=== PATIENT | male | born 1940 | race Caucasian/White ===

== ENCOUNTER → 2018-01-18 | Outpatient (CLI) | payer MEDICARE ==
[2018-01-18 14:03] LABS: CREATININE, SERUM 1.17 mg/dL (0.72-1.25)
--- NOTE | 2018-01-18 15:52 | Diagnostic Imaging Report ---
PROCEDURE: A single AP view of the chest. COMPARISON: None. INDICATIONS: PICC LINE PLACEMENT FINDINGS: See Impression IMPRESSION: 1. right-sided PICC line with distal tip projecting in the proximal SVC. 2. Clear lungs. No consolidation or pulmonary edema. 3. Cardiac mediastinal silhouette is unremarkable. Pulmonary vasculature is normal. Monico Ly M.D. Dictated by: Monico Ly M.D. on 01/18/2018 at 15:56 Electronically approved by: Monico Ly M.D. on 01/18/2018 at 15:56
== END ==
LOC: DX 13:04
PROVIDERS: ATTEND Internal Medicine Infectious Disease
DX: M86.071 Acute hematogenous osteomyelitis, right ankle and foot (principal)
CPT/HCPCS: 36415; 36569; 71045; 82565; 84520

== ENCOUNTER → 2020-04-24 | Day surgery (SDC) | payer MEDICARE, OTHER ==
[2020-04-19 13:01] LABS: BASOPHILS % 0.6 % (0.0-1.0); EOSINOPHILS # (AUTO) 0.3 (0.0-0.4); EOSINOPHILS % 4.2 % (0.0-6.0); HEMATOCRIT 34.9 % (38.2-49.6); HEMOGLOBIN 11.4 g/dL (14.0-18.0); LYMPHOCYTES % 13.8 % (18.0-39.1); MEAN CORPUSCULAR HEMOGLOBIN 29.9 pg (28-32); MEAN CORPUSCULAR HGB CONC 32.7 g/dL (31-35); MEAN CORPUSCULAR VOLUME 91.6 fL (81-99); MONOCYTES # (AUTO) 0.8 (0.2-0.8); MONOCYTES % 10.9 % (4.4-11.3); NEUTROPHILS # (AUTO) 4.8 (2.1-6.9); NEUTROPHILS % 70.4 % (38.7-80.0); PLATELET COUNT 157 x10e3/uL (140-360); RED BLOOD COUNT 3.81 x10e6/uL (4.3-5.7); RED CELL DISTRIBUTION WIDTH 14.6 % (11.7-14.4)
[2020-04-19 13:36] LABS: ANION GAP 13.7 mmol/L (8-16); CALCIUM 9.8 mg/dL (8.4-10.2); CREATININE, SERUM 1.33 mg/dL (0.72-1.25); POTASSIUM 4.7 mmol/L (3.5-5.1)
--- NOTE | 2020-04-19 13:55 | Diagnostic Imaging Report ---
EXAMINATION: CHEST 2 VIEWS INDICATION: Pre-operative COMPARISON: None FINDINGS: LINES/TUBES:None LUNGS:The lungs are well-inflated. No focal consolidation or pulmonary edema. PLEURA:No pleural effusion or pneumothorax. MEDIASTINUM:The cardiomediastinal silhouette appears normal in size and shape. BONES/SOFT TISSUES:No acute osseous injury. ABDOMEN:No free air under the diaphragm. IMPRESSION: No focal pneumonia or pulmonary edema. Signed by: Nadia Monreal MD on 04/19/2020 1:52 PM
[~2020-04-24] MED LIST: BUPIVACAINE HCL 0.5% INJ 30 ML VIAL INJ ONE; CEFAZOLIN SOD 1 GM/NS 50ML 50 ML IV ONE; DEXAMETHASONE SOD PHOS INJ 4 MG/ML VIAL ONE; FENTANYL CITRATE/PF 100MCG/2 ML INJ ONE; FLOMAX0.4 MG PO; LEVOTHYROXINE50 MCG PO; LIDOCAINE HCL 2% LOCAL INJ 5 ML SDV VIAL INJ ONE; LISINOPRIL10 MG PO; METFORMIN HCL500 MG PO; METOPROLOL PO; MIDAZOLAM HCL 2 MG/2 ML VIAL ONE; MULTIVITAMINS1 EAC7 PO; NAMENDA5 MG PO; OXYBUTYNIN CHLOR5 M1 PO; PRADAXA150 MG PO; PRADAXA75 MG PO; PROPOFOL IV EMULSION 10 MG/ML 20 ML VIAL ONE
[2020-04-24 06:03] LABS: INR 0.86; PROTHROMBIN TIME 12.2 seconds (11.9-14.5)
[2020-04-24 06:04] LABS: PARTIAL THROMBOPLASTIN TIME 29.7 seconds (23.8-35.5)
[2020-04-24 07:55] VITALS: BP 170/84
--- NOTE | 2020-04-24 08:18 | Operative Report ---
DATE OF PROCEDURE: 04/24/2020 SURGEON: Halie Lacy DPM PREOPERATIVE DIAGNOSES: 1. Right foot sesamoiditis. 2. Acute osteomyelitis, right foot, tibial sesamoid. PROCEDURE: Sesamoidectomy, right foot. ANESTHESIA: MAC with local block consisting of 10 mL of 0.5% Marcaine plain. HEMOSTASIS: Pneumatic ankle tourniquet set at 250 mmHg for a total time of approximately 20 minutes. MATERIALS: 3-0 Vicryl, 4-0 Prolene. ESTIMATED BLOOD LOSS: Less than 10 mL. PATHOLOGY: None. PROCEDURE NOTE: The patient was seen in the preoperative waiting room. The correct procedure and site were identified. The patient was brought to the operating room and placed on the operating table in a supine position. IV sedation was initiated at this time. An injection consisting of 10 mL of 0.5% Marcaine plain was injected into the right first metatarsal in a Burton block fashion. Next, the right foot was then scrubbed, prepped, and draped in the usual aseptic manner. The right foot, ankle, and leg were exsanguinated with an Esmarch bandage and a pneumatic ankle tourniquet was inflated to 250 mmHg for a total time of approximately 20 minutes. Attention was directed to the medial aspect of the patient's right first metatarsophalangeal joint, where a callus was noted plantarly with a previously healed wound. A 4 cm linear incision made directly along the medial aspect of the patient's right first metatarsophalangeal joint. Incision was carried through subcutaneous tissue them from deep or underling structures. All vital and neurovascular structures were identified, retracted medially and laterally and all bleeders were cauterized or ligated as deemed necessary. Next, a linear capsulotomy was performed along the medial aspect of the first metatarsophalangeal joint. The dissection was carried down to allow for good visualization of the tibial sesamoid. Utilizing a #15 blade, the tibial sesamoid was dissected free of all capsular ligamentous attachments. Care was taken to ensure that the flexor hallucis longus tendon was intact and functioning appropriately after removal of the sesamoid. Utilizing intraoperative fluoroscopy, it was confirmed that the sesamoid had been excised and passed off to the back table. The wound was then copiously irrigated with sterile saline. Capsule and deep tissue were reapproximated with 3-0 Vicryl, subcutaneous tissue with 3-0 Vicryl, and the skin was closed using simple interrupted sutures with 4-0 Prolene. The patient tolerated the procedure and anesthesia well. The patient was transferred to the postoperative recovery room with vital signs stable and vascular status intact. The patient was monitored there for a short period of time before being sent home with the following written and oral instructions: 1. Keep the dressing clean, dry, intact. 2. The patient is to remain partial heel touch weightbearing to the right lower extremity with crutches and a postop shoe. The patient was given the office number and instructed to contact us if any problems arise. MAGGIE Garcia/YOVANNY /[id number]
== END | disposition home or self-care (01) ==
LOC: OR 05:10
PROVIDERS: ATTEND Podiatrist Foot & Ankle Surgery
DX: M86.071 Acute hematogenous osteomyelitis, right ankle and foot (principal); M25.871 Other specified joint disorders, right ankle and foot; L84 Corns and callosities; E11.9 Type 2 diabetes mellitus without complications; I10 Essential (primary) hypertension; E11.22 Type 2 diabetes mellitus with diabetic chronic kidney disease; I12.9 Hypertensive chronic kidney disease with stage 1 through stage 4 chronic kidney disease, or unspecified chronic kidney disease; N18.9 Chronic kidney disease, unspecified; C61 Malignant neoplasm of prostate; I48.91 Unspecified atrial fibrillation; Z01.810 Encounter for preprocedural cardiovascular examination; Z01.812 Encounter for preprocedural laboratory examination; Z01.818 Encounter for other preprocedural examination; Z11.59 Encounter for screening for other viral diseases; Z79.84 Long term (current) use of oral hypoglycemic drugs; Z79.02 Long term (current) use of antithrombotics/antiplatelets
CPT/HCPCS: 28315; 36415 ×2; 71046; 80048; 82948; 85025; 85610; 85730; 93005; J0690; J2001; J2250; J2704; J3010; U0002; J1100